=== PATIENT | female | born 1955 | race African-American/Black ===

== ENCOUNTER 2018-08-19 08:24 | Emergency (ER) | payer BC ==
[~2018-08-19] VITALS: Ht 180.3 cm; Wt 102.0 kg
[2018-08-19] MEDS ORDERED: ALBUTEROL (0.083%) 2.5MG/3ML NEB HHN STA (09:03)
[2018-08-19] MEDS ORDERED: IPRATROPIUM BROMIDE (0.02%) 0.5MG/2.5ML NEB HHN STA (09:03)
[2018-08-19] MEDS ORDERED: METHYLPREDNISOLONE SOD SUCC 125 MG/2 ML VIAL IV STA (09:03)
[2018-08-19] MEDS ORDERED: MAGNESIUM 2 G PREMIX 50 ML IV ONE (09:15)
[2018-08-19 09:33] LABS: BASOPHILS % 0.4 % (0.0-2.0); EOSINOPHILS % 0.1 % (0.0-5.0); HEMATOCRIT. 41.9 % (36.0-48.0); HEMOGLOBIN. 13.6 g/dL (12.0-16.0); LYMPHOCYTES % 17.4 % (20.0-50.0); MEAN CORPUSCULAR HEMOGLOBIN 25.6 pg (28.0-32.0); MEAN CORPUSCULAR VOLUME 79.1 fL (81.0-99.0); MEAN PLATELET VOLUME 9.1 fl (7.4-10.4); MONOCYTES % 13.5 % (2.0-8.0); NEUTROPHILS % 68.6 % (40.0-76.0); PLATELET 246 x1000/uL (130-400); RED CELL DISTRIBUTION WIDTH 16.3 % (11.6-14.6)
[2018-08-19 09:39] LABS: CHLORIDE 105 mEq/L (98-107)
[2018-08-19 10:42] VITALS: BP 150/92
== END 2018-08-19 11:02 | disposition home or self-care (01) ==
LOC: ER 08:24
DX: J45.901 Unspecified asthma with (acute) exacerbation (principal); R05 Cough; E87.6 Hypokalemia; E88.09 Other disorders of plasma-protein metabolism, not elsewhere classified; R06.02 Shortness of breath; I10 Essential (primary) hypertension; Z88.2 Allergy status to sulfonamides
CPT/HCPCS: 36415; 71045; 80053; 85025; 93005; 94644; 96365; 96366; 96375; 99285; J2930; J3475; J7611

== ENCOUNTER 2018-08-21 01:33 | Inpatient (IN) | payer BC ==
[~2018-08-21] VITALS: Ht 177.8 cm; Wt 106.1 kg
[2018-08-21] MEDS ORDERED: METHYLPREDNISOLONE SOD SUCC 125 MG/2 ML VIAL IV STA (02:31)
[2018-08-21] MEDS ORDERED: IPRATROPIUM BROMIDE (0.02%) 0.5MG/2.5ML NEB HHN STA (02:31)
[2018-08-21] MEDS ORDERED: ALBUTEROL (0.083%) 2.5MG/3ML NEB HHN STA (02:31)
[2018-08-21 04:50] LABS: BASOPHILS % 0.2 % (0.0-2.0); EOSINOPHILS % 0.2 % (0.0-5.0); HEMATOCRIT. 41.4 % (36.0-48.0); HEMOGLOBIN. 13.5 g/dL (12.0-16.0); LYMPHOCYTES % 20.9 % (20.0-50.0); MEAN CORPUSCULAR HEMOGLOBIN 25.9 pg (28.0-32.0); MEAN CORPUSCULAR VOLUME 79.2 fL (81.0-99.0); MEAN PLATELET VOLUME 8.9 fl (7.4-10.4); MONOCYTES % 11.4 % (2.0-8.0); NEUTROPHILS % 67.3 % (40.0-76.0); PLATELET 209 x1000/uL (130-400); RED BLOOD CELL COUNT 5.22 mill/uL (4.2-5.4); RED CELL DISTRIBUTION WIDTH 16.2 % (11.6-14.6)
[2018-08-21 04:58] LABS: CHLORIDE 103 mEq/L (98-107)
[2018-08-21] MEDS ORDERED: ALBUTEROL (0.083%) 2.5MG/3ML NEB HHN ONE ×2 (05:00)
[2018-08-21] MEDS ORDERED: ACETAMINOPHEN 325MG TABLET PO PRN ×2 (05:00→07:45)
[2018-08-21] MEDS ORDERED: POTASSIUM CHLORIDE 20MEQ TABLET SR PO ONE (05:45)
[2018-08-21] MEDS ORDERED: IPRATROPIUM/ALBUTEROL 0.5-3(2.5)MG/3ML NEB INH PRN (07:45)
[2018-08-21] MEDS ORDERED: TRAMADOL 50MG TABLET PO PRN ×2 (07:45)
[2018-08-21] MEDS ORDERED: DOCUSATE SODIUM 100MG CAPSULE PO PRN (07:45)
[2018-08-21] MEDS ORDERED: DIPHENHYDRAMINE 50MG/ML VIAL IV PRN (07:45)
[2018-08-21] MEDS ORDERED: ONDANSETRON HCL 4MG/2ML INJ IV PRN (07:45)
[2018-08-21] MEDS ORDERED: NITROGLYCERIN 0.4MG TABLET SL SL PRN (07:45)
[2018-08-21] MEDS ORDERED: LORAZEPAM 0.5MG TABLET PO PRN (07:45)
[2018-08-21] MEDS ORDERED: CLONIDINE 0.1MG TABLET PO PRN (07:45)
[2018-08-21] MEDS ORDERED: MAGNESIUM/ALUMINUM HYDROXIDE/SIMETHICONE 30ML UDC PO PRN (07:45)
[2018-08-21 08:20] LABS: ETHANOL BLOOD < 10 mg/dL
[2018-08-21] MEDS: FAMOTIDINE 20MG TABLET PO SCH ×2 (09:00→21:17)
[2018-08-21 09:05] VITALS: BP 136/79
[2018-08-21 09:11] VITALS: BP 136/79
[2018-08-21] MEDS: GUAIFENESIN 200MG/10ML SUGAR FREE UDC PO PRN (10:48)
[2018-08-21] MEDS: ENOXAPARIN 40MG/0.4ML SYR SUBCUT SCH (10:48)
[2018-08-21] MEDS: LEVOFLOXACIN 500MG PREMIX 100 ML IV SCH (10:49)
[2018-08-21] MEDS: ASPIRIN 325MG EC TABLET PO SCH (10:49)
[2018-08-21 12:00] VITALS: BP 139/79
[2018-08-21] MEDS: METHYLPREDNISOLONE SOD SUCC 125 MG/2 ML VIAL IV SCH ×2 (14:17→21:17)
[2018-08-21 16:00] VITALS: BP 145/74
[2018-08-21] MEDS: IPRATROPIUM/ALBUTEROL 0.5-3(2.5)MG/3ML NEB HHN SCH ×3 (16:13→20:55)
[2018-08-21 17:40] LABS: CREATINE KINASE 361 IU/L (26-192)
[2018-08-21 17:41] LABS: CREATINE KINASE MB FRACTION 1.6 ng/mL (0.5-3.6)
[2018-08-21] MEDS ORDERED: POTASSIUM CHLORIDE 20MEQ TABLET SR PO SCH (18:00)
[2018-08-21 20:00] VITALS: BP 154/73
[2018-08-21] MEDS ORDERED: LACTULOSE 20G/30ML UDC PO NR (20:15)
[2018-08-21] MEDS ORDERED: ZOLPIDEM TARTRATE 5MG TABLET PO PRN (21:00)
[2018-08-22] VITALS: BP 135/60
[2018-08-22] MEDS: IPRATROPIUM/ALBUTEROL 0.5-3(2.5)MG/3ML NEB HHN SCH ×6 (00:49→21:13)
[2018-08-22 04:00] VITALS: BP 154/82
[2018-08-22] MEDS: METHYLPREDNISOLONE SOD SUCC 125 MG/2 ML VIAL IV SCH ×3 (05:24→20:50)
[2018-08-22] MEDS ORDERED: AMLO10TA80 PO (06:27)
[2018-08-22] MEDS ORDERED: P20 PO (06:27)
[2018-08-22 06:47] LABS: BASOPHILS % 0.2 % (0.0-2.0); HEMATOCRIT. 38.5 % (36.0-48.0); HEMOGLOBIN. 12.6 g/dL (12.0-16.0); LYMPHOCYTES % 8.3 % (20.0-50.0); MEAN CORPUSCULAR HEMOGLOBIN 26.1 pg (28.0-32.0); MEAN CORPUSCULAR VOLUME 79.6 fL (81.0-99.0); MEAN PLATELET VOLUME 9.4 fl (7.4-10.4); MONOCYTES % 8.3 % (2.0-8.0); NEUTROPHILS % 83.2 % (40.0-76.0); PLATELET 218 x1000/uL (130-400); RED BLOOD CELL COUNT 4.83 mill/uL (4.2-5.4); RED CELL DISTRIBUTION WIDTH 15.8 % (11.6-14.6)
[2018-08-22 06:57] LABS: CHLORIDE 103 mEq/L (98-107)
[2018-08-22 07:08] LABS: CREATINE KINASE 196 IU/L (26-192)
[2018-08-22 07:11] LABS: CREATINE KINASE MB FRACTION 1.5 ng/mL (0.5-3.6)
[2018-08-22 08:00] VITALS: BP 145/82
[2018-08-22 09:28] LABS: CLARITY URINE CLEAR (CLEAR); COLOR URINE YELLOW (YELLOW); KETONES URINE NEGATIVE (NEGATIVE); LEUKOCYTE ESTERASE URINE NEGATIVE (NEGATIVE); NITRITE URINE NEGATIVE (NEGATIVE); OCCULT BLOOD URINE NEGATIVE (NEGATIVE); PROTEIN URINE NEGATIVE (NEGATIVE); SPECIFIC GRAVITY URINE 1.015 (1.005-1.030); UROBILINOGEN URINE 0.2 E.U./dL (0.2-1.0)
[2018-08-22 09:52] LABS: *AMPHETAMINES SCREEN URINE NEGATIVE (NEGATIVE); *BARBITURATES SCREEN URINE NEGATIVE (NEGATIVE); *BENZODIAZEPINES SCREEN URINE NEGATIVE (NEGATIVE); *COCAINE SCREEN URINE NEGATIVE (NEGATIVE); METHADONE URINE SCREEN NEGATIVE (NEGATIVE); OPIATES URINE SCREEN PRESUMTIVE POSITIVE (NEGATIVE)
[2018-08-22 09:53] LABS: CANNABINOID URINE SCREEN NEGATIVE (NEGATIVE); PHENCYCLIDINE URINE SCREEN NEGATIVE (NEGATIVE)
[2018-08-22] MEDS: FAMOTIDINE 20MG TABLET PO SCH ×2 (10:01→20:50)
[2018-08-22] MEDS: ASPIRIN 325MG EC TABLET PO SCH (10:01)
[2018-08-22] MEDS: ENOXAPARIN 40MG/0.4ML SYR SUBCUT SCH (10:03)
[2018-08-22] MEDS: LEVOFLOXACIN 500MG PREMIX 100 ML IV SCH (10:33)
[2018-08-22 11:42] VITALS: BP 149/76
[2018-08-22] MEDS: AMLODIPINE 5MG TABLET PO SCH (11:44)
[2018-08-22] MEDS: GUAIFENESIN 200MG/10ML SUGAR FREE UDC PO PRN ×2 (11:45→22:57)
[2018-08-22 16:26] VITALS: BP 138/79
[2018-08-22] MEDS ORDERED: LACTULOSE 20G/30ML UDC PO PRN (19:00)
[2018-08-22 20:00] VITALS: BP 156/76
[2018-08-22] MEDS: ENOXAPARIN 30MG/0.3ML SYR SUBCUT SCH (20:50)
[2018-08-23] VITALS: BP 139/73
[2018-08-23] MEDS: IPRATROPIUM/ALBUTEROL 0.5-3(2.5)MG/3ML NEB HHN SCH ×3 (01:12→08:52)
[2018-08-23 04:00] VITALS: BP 102/53
[2018-08-23] MEDS: METHYLPREDNISOLONE SOD SUCC 125 MG/2 ML VIAL IV SCH (06:02)
[2018-08-23 08:00] VITALS: BP 143/89
[2018-08-23] MEDS: AMLODIPINE 5MG TABLET PO SCH (09:41)
[2018-08-23] MEDS: ASPIRIN 325MG EC TABLET PO SCH (09:41)
[2018-08-23] MEDS: FAMOTIDINE 20MG TABLET PO SCH (09:41)
[2018-08-23] MEDS: ENOXAPARIN 30MG/0.3ML SYR SUBCUT SCH (09:42)
[2018-08-23] MEDS: GUAIFENESIN 200MG/10ML SUGAR FREE UDC PO PRN (09:48)
[2018-08-23] MEDS ORDERED: LEVOFLOXACIN 500MG TABLET PO SCH (11:00)
[2018-08-23 11:38] VITALS: BP 143/89
== END 2018-08-23 12:09 | disposition home or self-care (01) | DRG 189 ==
LOC: ER 01:33 → 7WST 05:03 → ENRESERV 07:00
PROVIDERS: ADMIT Internal Medicine; ATTEND Internal Medicine
DX: J96.00 Acute respiratory failure, unspecified whether with hypoxia or hypercapnia (principal); J45.901 Unspecified asthma with (acute) exacerbation; E44.0 Moderate protein-calorie malnutrition; E83.51 Hypocalcemia; E87.6 Hypokalemia; E66.9 Obesity, unspecified; E83.52 Hypercalcemia; I11.9 Hypertensive heart disease without heart failure; Z82.5 Family history of asthma and other chronic lower respiratory diseases; Z68.33 Body mass index [BMI] 33.0-33.9, adult; Z88.2 Allergy status to sulfonamides
CPT/HCPCS: 36415; 80305; 82550; 82553; 83036; 83735; 84484; 93005; 93306; 93970; 94640; 96374; 99285; G0482; J1200; J1650; J1956; J2930; J7611; J7620